=== PATIENT | female | born 1980 | race Caucasian/White ===

== ENCOUNTER 2023-03-22 18:11 | Emergency (ER) | payer OTHER, SELFPAY ==
[2023-03-22] MEDS ORDERED: Cyclobenzaprine 10 MG TAB ONE (18:45)
[2023-03-22] MEDS ORDERED: Ketorolac Tromethamine 30 MG (1 mL) VIAL ONE (18:45)
== END 2023-03-22 19:10 | disposition home or self-care (01) ==
LOC: MADERS 18:11
DX: M54.50 Low back pain, unspecified (principal); R05.9 Cough, unspecified; R09.81 Nasal congestion; F17.200 Nicotine dependence, unspecified, uncomplicated
CPT/HCPCS: 99283; J1885